=== PATIENT | female | born 1985 | race American Indian/Alaskan Native ===

== ENCOUNTER 2016-04-19 01:27 | Emergency (ER) | payer SELFPAY ==
[2016-04-19 03:23] LABS: Basophils % (Auto) 0.7 % (0.0-1.8); Eosinophils % (Auto) 0.5 % (0.0-4.3); Hematocrit 41.6 % (30.3-42.9); Hemoglobin 13.1 gm/dl (10.1-14.3); Mean Corpuscular HGB Conc 32 % (30-34); Mean Corpuscular Hemoglobin 27 pg (28-32); Mean Corpuscular Volume 86 fl (79-97); Platelet Count 240 K/mm3 (140-440); Red Blood Count 4.82 M/mm3 (3.65-5.03); Red Cell Distribution Width 14.6 % (13.2-15.2); White Blood Count 7.2 K/mm3 (4.5-11.0)
[2016-04-19 03:35] LABS: Alanine Aminotransferase 19 units/L (7-56); Albumin 4.1 g/dL (3.9-5); Albumin/Globulin Ratio 1.1 %; Alkaline Phosphatase 66 units/L (35-129); Bilirubin,Total 0.3 mg/dL (0.1-1.2); Blood Urea Nitrogen 12 mg/dL (7-17); Calcium 9.5 mg/dL (8.4-10.2); Carbon Dioxide 23 mmol/L (22-30); Chloride 102.4 mmol/L (98-107); Glucose 93 mg/dL (65-100); Lipase 20 units/L (13-60); Potassium 4.3 mmol/L (3.6-5.0); Sodium 142 mmol/L (137-145); Total Protein 7.7 g/dL (6.3-8.2)
[2016-04-19 03:39] LABS: Anion Gap 21 mmol/L
[2016-04-19] MEDS ORDERED: ZOFRAN ODT ONE (06:44)
[2016-04-19] MEDS ORDERED: ZOFRAN ODT PO ONE (06:46)
--- NOTE | 2016-04-19 06:51 | Emergency Department Report ---
Chief Complaint: Abdominal Pain Stated Complaint: NAUSEA AND VOMITING, ABDOMINAL CRAMPS - HPI History of Present Illness: Patient here reports sharp pain to her left flank that radiated into the left abdomen. Reports pain is 9 out of 10 and she is having nausea. She says she has a history of kidney stone. Denies any diarrhea or fever or chills. Patient suggests far has been unable to urinate because she says that when she tries to drink water she just feels nauseous and she can't tolerated. - ROS Review of Systems: All systems are negative unless stated in HPI above. - Exam Vital Signs: Vital Signs 04/19/16 02:32 Temperature 98.7 F Pulse Rate 64 Respiratory 18 Rate Blood Pressure 142/87 O2 Sat by Pulse 100 Oximetry Physical Exam: General: This is an obese female that is nontoxic in appearance GI: Positive left CVA tenderness. Mild tenderness to lower quadrant of abdomen. Normal bowel sounds in all quadrants. CV: S1, S2. Regular rate and rhythm. MSE screening note: Focused history and physical exam performed. Due to findings the following was ordered:see [facility] ED Medical Decision Making - Lab Data Result diagrams: 04/19/16 03:02 04/19/16 03:02 - Medical Decision Making Medical decision making: Patient seen by provider in triage area. Appropriate protocol activated and patient to main ED to be seen by physician. ED Disposition for MSE Condition: Stable Instructions: Abdominal Pain (ED)
--- NOTE | 2016-04-19 08:29 | Cat Scan Report ---
CT OF THE ABDOMEN AND PELVIS WITHOUT CONTRAST HISTORY: Left flank pain. TECHNIQUE: Helical CT without contrast. Sagittal and coronal reformatted images. FINDINGS: A 4.9 mm distal left ureteral stone is identified on image 127. There is mild upstream left hydronephrosis. No additional renal or ureteral stones are identified. The kidneys, adrenal glands and bladder are unremarkable. Within the limits of a noncontrast exam, the remaining abdominal and pelvic viscera are within normal limits. The liver, biliary system, pancreas, spleen, uterus and adnexa are unremarkable. The bowel loops are normal caliber and wall thickness. Normal appendix. The aorta is normal caliber. No ascites, bulky adenopathy or inflammatory changes. The lung bases are clear. Normal heart size. No suspicious bony lesion. IMPRESSION: 4.9 mm distal left ureteral stone, mildly obstructing.
[2016-04-19] MEDS ORDERED: SUBLIMAZE IV ONE ×2 (12:37→14:54)
[2016-04-19] MEDS ORDERED: ZOFRAN IV ONE (12:37)
[2016-04-19] MEDS ORDERED: NACL 0.9% 1000 ML 1,000 ML IV ONE (12:37)
[2016-04-19] MEDS ORDERED: TORADOL IV ONE (12:37)
--- NOTE | 2016-04-19 12:44 | Emergency Department Report ---
HPI - General Chief Complaint: Abdominal Pain Time Seen by Provider: 04/19/16 06:47 - HPI HPI: Room 20 The patient is a 31-year-old female presenting with a chief complaint of left flank pain. The patient states last night she developed left abdominal cramping that began to radiate to her left flank. Patient admits to nausea and vomiting. The patient currently gives her pain a score of 7/10. The patient states she was diagnosed with a kidney stone one month ago but never followed up with a urologist because her pain had resolved. The patient states she was told the stone was approximately 4 mm and she does not recall passing it. Location: Left flank Duration: Constant since last night Quality: Pain Severity: 7/10 Modifying factors: [see above] Context: [see above] Mode of transportation: [not driving] ED Past Medical Hx - Past Medical History Previous Medical History?: Yes Hx Kidney Stones: Yes - Surgical History Past Surgical History?: No - Family History Family history: no significant - Social History Smoking Status: Never Smoker Substance Use Type: None - Medications Home Medications: Home Medications Medication Instructions Recorded Confirmed Last Taken Type Promethazine [Phenergan TAB] 25 mg PO Q6HR PRN #20 tab 04/19/16 Unknown Rx Promethazine [Phenergan] 25 mg [place] Q6HR PRN #5 supp.rect 04/19/16 Unknown Rx Sulfamethoxazole/Trimethoprim 1 each PO BID #14 tablet 04/19/16 Unknown Rx [Bactrim DS TAB] Tamsulosin [Flomax] 0.4 mg PO QDAY #3 cap 04/19/16 Unknown Rx oxyCODONE /ACETAMINOPHEN [Percocet 1 - 2 tab PO Q6HR PRN #20 tablet 04/19/16 Unknown Rx 5/325] ED Review of Systems ROS: Stated complaint: NAUSEA AND VOMITING, ABDOMINAL CRAMPS Other details as noted in HPI Comment: All other systems reviewed and negative Constitutional: denies: chills, fever Eyes: denies: eye pain, eye discharge, vision change ENT: denies: ear pain, throat pain Respiratory: denies: cough, shortness of breath, wheezing Cardiovascular: denies: chest pain, palpitations Endocrine: no symptoms reported Gastrointestinal: abdominal pain, nausea, vomiting Genitourinary: denies: urgency, dysuria, discharge Musculoskeletal: back pain Skin: denies: rash, lesions Neurological: denies: headache, weakness, paresthesias Psychiatric: denies: anxiety, depression Hematological/Lymphatic: denies: easy bleeding, easy bruising Physical Exam - Physical Exam Vital Signs: Vital Signs 04/19/16 02:32 Temperature 98.7 F Pulse Rate 64 Respiratory 18 Rate Blood Pressure 142/87 O2 Sat by Pulse 100 Oximetry Physical Exam: GENERAL: The patient is well-developed well-nourished female lying on stretcher appearing to be in mild discomfort. [] HEENT: Normocephalic. Atraumatic. Extraocular motions are intact. Patient has moist mucous membranes. NECK: Supple. Trachea midline CHEST/LUNGS: Clear to auscultation. There is no respiratory distress noted. HEART/CARDIOVASCULAR: Regular. There is no tachycardia. There is no gallop rub or murmur. ABDOMEN: Abdomen is soft, nontender. Patient has normal bowel sounds. There is no abdominal distention. SKIN: There is no rash. There is no edema. There is no diaphoresis. NEURO: The patient is awake, alert, and oriented. The patient is cooperative. The patient has normal speech MUSCULOSKELETAL: There is left flank pain. There is no evidence of acute injury. ED Course Vital Signs 04/19/16 02:32 Temperature 98.7 F Pulse Rate 64 Respiratory 18 Rate Blood Pressure 142/87 O2 Sat by Pulse 100 Oximetry ED Medical Decision Making - Lab Data Result diagrams: 04/19/16 03:02 04/19/16 03:02 Laboratory Tests 04/19/16 04/19/16 04/19/16 03:02 03:02 07:25 WBC 7.2 RBC 4.82 Hgb 13.1 Hct 41.6 MCV 86 MCH 27 L MCHC 32 RDW 14.6 Plt Count 240 Lymph % (Auto) 25.1 Cottle % (Auto) 5.7 Eos % (Auto) 0.5 Baso % (Auto) 0.7 Lymph # 1.8 Cottle # 0.4 Eos # 0.0 Baso # 0.1 Seg Neutrophils % 68.0 Seg Neutrophils # 4.9 Sodium 142 Potassium 4.3 Chloride 102.4 Carbon Dioxide 23 Anion Gap 21 BUN 12 Creatinine 0.8 Estimated GFR > 60 BUN/Creatinine Ratio 15.00 Glucose 93 Calcium 9.5 Total Bilirubin 0.3 AST 19 ALT 19 Alkaline Phosphatase 66 Total Protein 7.7 Albumin 4.1 Albumin/Globulin Ratio 1.1 Lipase 20 HCG, Qual Negative Urine Color Urine Turbidity Urine pH Ur Specific [place] Urine Protein Urine Glucose (UA) Urine Ketones Urine Blood Urine Nitrite Urine Bilirubin Urine Urobilinogen Ur Leukocyte Esterase Urine WBC (Auto) Urine RBC (Auto) U Epithel Cells (Auto) Urine Mucus 04/19/16 13:50 WBC RBC Hgb Hct MCV MCH MCHC RDW Plt Count Lymph % (Auto) Cottle % (Auto) Eos % (Auto) Baso % (Auto) Lymph # Cottle # Eos # Baso # Seg Neutrophils % Seg Neutrophils # Sodium Potassium Chloride Carbon Dioxide Anion Gap BUN Creatinine Estimated GFR BUN/Creatinine Ratio Glucose Calcium Total Bilirubin AST ALT Alkaline Phosphatase Total Protein Albumin Albumin/Globulin Ratio Lipase HCG, Qual Urine Color Red Urine Turbidity Cloudy Urine pH 6.0 Ur Specific [place] 1.033 H Urine Protein 100 mg/dl Urine Glucose (UA) Neg Urine Ketones 20 Urine Blood Lg Urine Nitrite Neg Urine Bilirubin Neg Urine Urobilinogen < 2.0 Ur Leukocyte Esterase Neg Urine WBC (Auto) 14.0 H Urine RBC (Auto) > 182.0 U Epithel Cells (Auto) 40.0 H Urine Mucus 2+ - Radiology Data Radiology results: report reviewed (CT abdomen and pelvis), image reviewed (CT abdomen pelvis) CT abdomen and pelvis (read by radiologist)-4.9 mm distal left ureteral stone, mildly obstructing. - Differential Diagnosis renal colic Critical care attestation.: If time is entered above; I have spent that time in minutes in the direct care of this critically ill patient, excluding procedure time. ED Disposition Clinical Impression: Renal colic on left side, Acute left flank pain, UTI (urinary tract infection) Disposition: DISCHARGED TO HOME OR SELFCARE Is pt being admited?: No Does the pt Need Aspirin: No Condition: Stable Instructions: Abdominal Pain (ED) Additional Instructions: Return to the emergency department immediately should you develop worsening symptoms, fever, inability to tolerate food or liquid or any other concerns. Prescriptions: Promethazine [Phenergan TAB] 25 mg PO Q6HR PRN #20 tab PRN Reason: Nausea Promethazine [Phenergan] 25 mg [place] Q6HR PRN #5 supp.rect PRN Reason: Vomiting Sulfamethoxazole/Trimethoprim [Bactrim DS TAB] 1 each PO BID #14 tablet Tamsulosin [Flomax] 0.4 mg PO QDAY #3 cap oxyCODONE /ACETAMINOPHEN [Percocet 5/325] 1 - 2 tab PO Q6HR PRN #20 tablet PRN Reason: Pain Referrals: PRIMARY CARE, [Primary Care Provider] - 3-5 Days KILEY POLK MD [Staff Physician] - 3-5 Days (Dr. Polk is a neurologist. Please follow up with him for further evaluation) Time of Disposition: 14:55
[2016-04-19 14:19] LABS: Bilirubin,Urine NEG (Negative); Blood,Urine LG (Negative); Ketones,Urine 20 mg/dL (Negative); Leukocyte Esterase,Urine NEG (Negative); Mucus,Urine 2+ /HPF; Nitrite,Urine NEG (Negative); Urobilinogen,Urine < 2.0 mg/dL (<2.0)
[2016-04-19 14:20] LABS: RBC,Urine > 182.0 /HPF (0.0-6.0)
[2016-04-19] MEDS ORDERED: ROCEPHIN/NS 1 GM/50 ML 50 ML IV ONE (14:49)
[2016-04-19 15:47] VITALS: BP 107/42
== END 2016-04-19 15:50 | disposition home or self-care (01) ==
LOC: ED 01:27
DX: N39.0 Urinary tract infection, site not specified (principal); N23 Unspecified renal colic
CPT/HCPCS: 36415; 74176; 80053; 81001; 83690; 84703; 85025; 87086; 96361; 96365; 96375; 96376; 99284; J0696; J1885; J2405; J3010; J7030; Q0162